=== PATIENT | female | born 1940 | race Caucasian/White ===

== ENCOUNTER 2023-06-11 12:18 | Emergency (ER) | payer MEDICARE, BC, SELFPAY ==
[2023-06-11 12:20] VITALS: BP 131/64
[2023-06-11 12:45] LABS: % Basophils 0.7 % (0-2); % Eosinophils 1.4 % (0-6); % Immature Granulocytes 0.3 % (0-0.5); % Lymphocytes 17.1 % (20.5-51.1); % Monocytes 14.7 % (1.7-9.3); % Neutrophils 65.8 % (42.2-75.2); Absolute Basophils 0.1 10^3/uL (0-0.2); Absolute Eosinophils 0.1 10^3/uL (0-0.7); Absolute Lymphocytes 1.3 10^3/uL (1.2-3.4); Absolute Monocytes 1.1 10^3/uL (0.1-0.6); Absolute Neutrophils 4.9 10^3/uL (1.4-6.5); Hematocrit 37.4 % (37.0-47.0); Hemoglobin 12.9 g/dL (12.0-16.0); Mean Corp Hgb Conc. 34.5 g/dL (33.0-37.0); Mean Corpuscular Hgb 31.3 pg (27.0-31.0); Mean Corpuscular Volume 90.8 fL (81.0-99.0); Mean Platelet Volume 9.3 fL (7.4-10.4); Nucleated Red Blood Cells % 0 %; Platelet Count 341 10^3/uL (130-400); Red Blood Cell Count 4.12 10^6/uL (4.20-5.40); Red Cell Dist. Width 13.2 % (11.5-14.5); White Blood Cell Count 7.4 10^3/uL (4.8-10.8)
[2023-06-11 12:55] LABS: ALT (SGPT) 22 U/L (0-35); AST (SGOT) 30 U/L (14-36); Alkaline Phosphatase 68 U/L (38-126); Blood Urea Nitrogen 12 mg/dl (7-17); Calcium 8.5 mg/dl (8.4-10.2); Carbon Dioxide 27 mmol/L (22-30); Chloride 106 mmol/L (98-107); Glucose 109 mg/dl (70-99); Potassium 3.4 mmol/L (3.5-5.1); Sodium 139 mmol/L (135-145); Total Bilirubin 1.2 mg/dl (0.2-1.3); Total Protein 6.7 g/dl (6.3-8.2); eGFR > 60.00
[2023-06-11 15:50] LABS: Lactic Acid 1.5 mmol/L (0.7-2.0)
[2023-06-11] MEDS: FIRVANQ 125 MG PO (17:11)
--- NOTE | 2023-06-11 17:17 | ED.GENMED ---
History of Present Illness
<Carole Crowley PA-C - Last Filed: 06/11/23 17:25>
General
Chief Complaint: Bowel Problem
Source: patient
Exam Limitations: none
Time Seen by Provider: 06/11/23 15:01
Nursing documentation reviewed up to this point in time: agreed with
Travel History
Have you had any contact with someone who has COVID-19?: No
Do you have any symptoms of coronavirus? Fever > 100 degrees, chills, cough, shortness of breath, sore throat, loss of taste or smell, muscle aches, or headache?: No
History of Present Illness
History of Present Illness:
pt is a 83 y/o F
afib on [employer]
had a mechanical fall on 06/02 outside on wet ground and hit her head and fractured right wrist. had ORIF at [facility], was hospitalized until 06/04.. she had IV abx during that hospitalization. neg head ct
she went to her daughter's house on 06/04-06/06 and has been home at [facility] ([place] since.
for 5 days following her fall, pt was constipated. she was receiving IV dailudid in the hospital
on 06/06 pt's daughter who is a [employer] BLAST[employer] disimpacted her at home. she was able to move bowels afterward, slightly bloody on the tissue but no residual blood.
she says ever since then, she has had stool incontinence, a lot of liquidy stool and has to wear depends. she says she has no rectal numbness but she doesn't even feel she has to have BM and it is in her pant/
pt was getting miralax for a few days but stopped that.
she has not had any rectal pain, bleeding, fever, lightheadedness, fatigue, abdomianl pain
sh denies back pain/back injury, leg weaknes.
Past History
<Carole Crowley PA-C - Last Filed: 06/11/23 17:25>
Past History
ED Past Medical History: Arrthythmia (Atrial fibrillation)
ED Past Surgical History: Appendectomy, Cholecystectomy, and Gynecological
Social History
Tobacco: Non-smoker
Alcohol: Daily
Drug: None
Personal: Single
Living: with family
Employment: Retired
Family History
Family History: Other (n/c)
Review of Systems
<Carole Crowley PA-C - Last Filed: 06/11/23 17:25>
Review of Systems
Allergies reviewed?: Yes
All Other Systems: Not applicable
Phy Exam
<Carole Crowley PA-C - Last Filed: 06/11/23 17:25>
Physical Exam
Physical Exam:
GENERAL: Alert , in no apparent distress
head: right sided ecchymosis and STS
EYE: pupils equal and reactive
NECK: Supple
ENT: o/p clr, mmm.
CARDIAC: Regular rate and rhythm .
LUNGS: Clear breath sounds bilaterally, no acute respiratory distress, no wheezes/rales/rhonchi
ABDOMEN: Soft, without focal tenderness, no r/g, no cvat, normal bowel sounds
rectum: there is some somwhat formed soft stool at her rectum which was brown and heme neg; small hemorrhoid, not bleeding;
no rectal pain
normal tone
NEUROLOGICAL: Alert and oriented, no focal neuro deficits
SKIN: Warm and dry, bruising right face, right arm
MUSCULOSKELETAL: r arm is in a cast; swollen, ecchymosis but moving fingers, senstaion itnact
PSYCH: Normal and appropriate interaction.
Course
<JOHNNY Larios Last Filed: 06/11/23 17:25>
Orders/Labs/Results
Orders:
Orders
06/11/23 12:34
CBC/With Diff [Complete Blood Count/With Diff] Urgent
06/11/23 12:35
CMP [Comprehensive Metabolic Panel] Urgent
06/11/23 15:24
CT Abd/Pel (IV only)-[facility] only Urgent
Comment:
Reason For Exam: constipation last week, disimpacted; now leaking
06/11/23 15:30
Lactic Acid Urgent
STOOL [C difficile Antigen & Toxins] Urgent
JAMES Source: Feces/Stool
Specimen Description:
Date Specimen was Collected: 06/11/23
Time Specimen was Collected: 15:29
Stool Culture Urgent
JAMES Source: Feces/Stool
Specimen Description:
Date Specimen was Collected: 06/11/23
Time Specimen was Collected: 15:29
06/11/23 17:01
Vancomycin HCl [Firvanq] 125 mg PO NOW STA
Abnormal Lab Results
06/11/23 06/11/23
12:34 12:35
RBC 4.12 L 10^6/uL
(4.20-5.40)
MCH 31.3 H pg
(27.0-31.0)
Absolute Monos (auto) 1.1 H 10^3/uL
(0.1-0.6)
Lymphocytes % 17.1 L %
(20.5-51.1)
Monocytes % 14.7 H %
(1.7-9.3)
Potassium 3.4 L mmol/L
(3.5-5.1)
Creatinine 0.5 L mg/dL
(0.6-1.0)
Glucose 109 H mg/dl
(70-99)
06/11/23 12:34
06/11/23 12:35
Vital Signs
Initial and Last Documented VS:
Initial Vital Signs
Temp Pulse Resp BP Pulse Ox
98.2 F 90 16 131/64 98
06/11/23 12:20 06/11/23 12:20 06/11/23 12:20 06/11/23 12:20 06/11/23 12:20
Last Documented Vital Signs
Temp Pulse Resp BP Pulse Ox
98.2 F 77 14 141/72 98
06/11/23 17:27 06/11/23 17:27 06/11/23 17:27 06/11/23 17:27 06/11/23 17:27
<Marilyn Marshall MD - Last Filed: 06/11/23 17:32>
Orders/Labs/Results
Orders:
Orders
06/11/23 12:34
CBC/With Diff [Complete Blood Count/With Diff] Urgent
06/11/23 12:35
CMP [Comprehensive Metabolic Panel] Urgent
06/11/23 15:24
CT Abd/Pel (IV only)-[facility] only Urgent
Comment:
Reason For Exam: constipation last week, disimpacted; now leaking
06/11/23 15:30
Lactic Acid Urgent
STOOL [C difficile Antigen & Toxins] Urgent
JAMES Source: Feces/Stool
Specimen Description:
Date Specimen was Collected: 06/11/23
Time Specimen was Collected: 15:29
Stool Culture Urgent
JAMES Source: Feces/Stool
Specimen Description:
Date Specimen was Collected: 06/11/23
Time Specimen was Collected: 15:29
06/11/23 17:01
Vancomycin HCl [Firvanq] 125 mg PO NOW STA
Abnormal Lab Results
06/11/23 06/11/23
12:34 12:35
RBC 4.12 L 10^6/uL
(4.20-5.40)
MCH 31.3 H pg
(27.0-31.0)
Absolute Monos (auto) 1.1 H 10^3/uL
(0.1-0.6)
Lymphocytes % 17.1 L %
(20.5-51.1)
Monocytes % 14.7 H %
(1.7-9.3)
Potassium 3.4 L mmol/L
(3.5-5.1)
Creatinine 0.5 L mg/dL
(0.6-1.0)
Glucose 109 H mg/dl
(70-99)
06/11/23 12:34
06/11/23 12:35
Vital Signs
Initial and Last Documented VS:
Initial Vital Signs
Temp Pulse Resp BP Pulse Ox
98.2 F 90 16 131/64 98
06/11/23 12:20 06/11/23 12:20 06/11/23 12:20 06/11/23 12:20 06/11/23 12:20
Last Documented Vital Signs
Temp Pulse Resp BP Pulse Ox
98.2 F 77 14 141/72 98
06/11/23 17:27 06/11/23 17:27 06/11/23 17:27 06/11/23 17:27 06/11/23 17:27
<Carole Crowley PA-C - Last Filed: 06/11/23 17:25>
MDM/Problems Addressed
Differential Diagnosis Includes:
c diff, colitis, ischemia
MDM/Problems Addressed:
83 y/o F
recently hopsitlaized and had abx
here with diarrhea/loose stool/stool incontiencne after being constipated last week
had disimpaction at home and has been leakin stool
pt says it is all throughtout the day
no other red flag symptosm for cauda equina, no back pain, nrmal leg strength and sensation, no fever
pt has normal tone here but with soft stool in her vault
no blood
labs reassuring
C DIFF TOX pos
ct shows no signfiicant findings, diverticulosis, stool
seen by ed attending
stable for outpatient trial of po vanc
<Carole Crowley PA-C - Last Filed: 06/11/23 17:25>
*Critical Care Note
Total Time (30-74mins, 75-104mins- exclusive of procedures): Not Applicable
ED Attending Note
<Carole Crowley PA-C - Last Filed: 06/11/23 17:25>
-
Portions of this chart may have been created with voice recognition software.� Occasional wrong word or��sound alike� substitutions may have occurred due to the inherent limitations of voice recognition software.
<Marilyn Marshall MD - Last Filed: 06/11/23 17:32>
ED Attending Note
Patient seen and examined by attending physician: Yes
I performed the substantive portion of visit, reviewed & personally made and approve the management plan that is documented in note by myself or JERE.: Yes
ED Attending Note:
Patient looks well and comfortable. Heart sounds regular lungs are clear. Abdomen is soft. Patient reports she is very comfortable going home with oral antibiotics and would prefer to do so. She appears well-perfused and hydrated.
Discharge Plan
Departure
Patient Disposition: Home (Routine Discharge)
Date of Disposition: 06/11/23
Time of Disposition: 16:50
Patient with high blood pressure during this ER visit?: No
Condition: Fair
Discharge Problem:
C. difficile colitis
Instructions: Clostridioides difficile (DC)
Prescriptions:
New
vancomycin 125 mg capsule
125 mg PO QID Qty: 40 0RF
No Action
amiodarone [Pacerone] 200 MG tablet
200 mg PO DAILY
apixaban [Eliquis] 5 MG tablet
5 mg PO BID
furosemide 40 MG tablet
40 mg PO DAILY Qty: 30 0RF
Referrals:
Ricardo Soares, DO [Active] - Follow up in 5-7 days (infectious disease)
Sacha Miller MD [Family Provider] -
Activity Restrictions/Additional Instructions:
You tested positive for C. difficile, it is a bacterial infection in your gut, risk factors being hospitalized recently. You should take vancomycin 125 mg 4 times a day for 10 days. Try to stay hydrated with fluids. It is very contagious so make
sure that anybody who might be helping you with your stool incontinence washes their hands and takes proper precautions. Return to the ER for severe diarrhea causing dehydration, lightheadedness, bloody stool, severe abdominal pain, fevers or
chills or any concerns. You should follow-up with your family doctor as well as with an infectious disease doctor.
Interventions
Interventions:
SS-Dkoaln-Dgonyoygmf Assessment Last Done: 06/11/23 16:27
[2023-06-11 17:27] VITALS: BP 141/72
== END 2023-06-11 18:10 | disposition home or self-care (01) ==
LOC: EMR 12:18
PROVIDERS: Emergency Medicine; Physician Assistant; EMERGENCY PHYSICIAN Emergency Medicine; FAMILY PHYSICIAN Internal Medicine Geriatric Medicine
DX: A04.72 Enterocolitis due to Clostridium difficile, not specified as recurrent (principal); I48.91 Unspecified atrial fibrillation; Z79.01 Long term (current) use of anticoagulants; Z90.49 Acquired absence of other specified parts of digestive tract
CPT/HCPCS: 99284; 74177; 80053; 83605; 85025; 87045; 87046; 87077; 87324; 87427; 87449; Q9967

== ENCOUNTER → 2023-07-30 11:11 | Outpatient (REF) | payer MEDICARE, BC, SELFPAY ==
[2023-07-30 12:33] LABS: ALT (SGPT) 15 U/L (0-35); AST (SGOT) 27 U/L (14-36); Albumin 4.3 g/dl (3.5-5.0); Alkaline Phosphatase 73 U/L (38-126); Blood Urea Nitrogen 19 mg/dl (7-17); Calcium 9.4 mg/dl (8.4-10.2); Carbon Dioxide 30 mmol/L (22-30); Chloride 101 mmol/L (98-107); Glucose 103 mg/dl (70-99); Potassium 4.7 mmol/L (3.5-5.1); Sodium 137 mmol/L (135-145); Total Bilirubin 0.7 mg/dl (0.2-1.3); Total Protein 6.9 g/dl (6.3-8.2); eGFR > 60.00
[2023-07-30 12:50] LABS: Vitamin D, 25-OH*** 41.9 ng/mL (30-80)
== END ==
LOC: REG 11:11
PROVIDERS: ATTENDING PHYSICIAN Internal Medicine; FAMILY PHYSICIAN Internal Medicine Geriatric Medicine
DX: M81.0 Age-related osteoporosis without current pathological fracture (principal); Z51.81 Encounter for therapeutic drug level monitoring
CPT/HCPCS: 36415; 80053; 82306

== ENCOUNTER 2023-08-03 15:07 | Outpatient (RCR) | payer MEDICARE, BC, SELFPAY | END 2023-08-03 23:59 | disposition home or self-care (01) | LOC: ROT 15:07 | PROVIDERS: ATTENDING PHYSICIAN Physician Assistant; FAMILY PHYSICIAN Internal Medicine Geriatric Medicine | DX: S52.91XD Unspecified fracture of right forearm, subsequent encounter for closed fracture with routine healing (principal); Z73.6 Limitation of activities due to disability | CPT/HCPCS: 97010; 97022; 97110; 97140; 97166 ==

== ENCOUNTER 2023-08-09 11:30 | Outpatient (RCR) | payer MEDICARE, BC, SELFPAY | END 2023-08-17 15:02 | disposition home or self-care (01) | LOC: ROT 11:30 | PROVIDERS: ATTENDING PHYSICIAN Physician Assistant; FAMILY PHYSICIAN Internal Medicine Geriatric Medicine | DX: S52.91XD Unspecified fracture of right forearm, subsequent encounter for closed fracture with routine healing (principal); Z73.6 Limitation of activities due to disability | CPT/HCPCS: 97010; 97022; 97110; 97140 ==

== ENCOUNTER → 2023-09-23 11:33 | Outpatient (REF) | payer MEDICARE, BC, SELFPAY | LOC: HWWDC 11:33 | PROVIDERS: ATTENDING PHYSICIAN Internal Medicine Geriatric Medicine | DX: Z12.31 Encounter for screening mammogram for malignant neoplasm of breast (principal) | CPT/HCPCS: 77063; 77067 ==

== ENCOUNTER → 2023-10-12 11:15 | Outpatient (REF) | payer MEDICARE, BC, SELFPAY ==
[2023-10-12 12:52] LABS: % Basophils 0.8 % (0-2); % Eosinophils 2.3 % (0-6); % Immature Granulocytes 0.2 % (0-0.5); % Lymphocytes 28.1 % (20.5-51.1); % Monocytes 14.5 % (1.7-9.3); % Neutrophils 54.1 % (42.2-75.2); Absolute Basophils 0.1 10^3/uL (0-0.2); Absolute Eosinophils 0.2 10^3/uL (0-0.7); Absolute Lymphocytes 1.8 10^3/uL (1.2-3.4); Absolute Neutrophils 3.5 10^3/uL (1.4-6.5); Hematocrit 40.5 % (37.0-47.0); Hemoglobin 13.4 g/dL (12.0-16.0); Mean Corp Hgb Conc. 33.1 g/dL (33.0-37.0); Mean Corpuscular Hgb 29.1 pg (27.0-31.0); Mean Corpuscular Volume 87.9 fL (81.0-99.0); Mean Platelet Volume 9.8 fL (7.4-10.4); Nucleated Red Blood Cells % 0 %; Platelet Count 295 10^3/uL (130-400); Red Blood Cell Count 4.61 10^6/uL (4.20-5.40); Red Cell Dist. Width 14.5 % (11.5-14.5); White Blood Cell Count 6.5 10^3/uL (4.8-10.8)
[2023-10-12 12:54] LABS: INR 1.24; PT 15.4 Sec (11.4-14.6)
[2023-10-12 12:55] LABS: APTT 28.5 Sec (23.4-35.0)
[2023-10-12 13:26] LABS: ALT (SGPT) 16 U/L (0-35); AST (SGOT) 26 U/L (14-36); Albumin 4.3 g/dl (3.5-5.0); Alkaline Phosphatase 69 U/L (38-126); Blood Urea Nitrogen 16 mg/dl (7-17); Calcium 9.4 mg/dl (8.4-10.2); Carbon Dioxide 28 mmol/L (22-30); Chloride 102 mmol/L (98-107); Glucose 98 mg/dl (70-99); Potassium 4.4 mmol/L (3.5-5.1); Sodium 140 mmol/L (135-145); Total Bilirubin 0.6 mg/dl (0.2-1.3); Total Protein 6.8 g/dl (6.3-8.2); eGFR > 60.00
== END ==
LOC: REG 11:15
PROVIDERS: ATTENDING PHYSICIAN Physician Assistant; FAMILY PHYSICIAN Internal Medicine Geriatric Medicine
DX: G56.03 Carpal tunnel syndrome, bilateral upper limbs (principal); Z01.812 Encounter for preprocedural laboratory examination; Z01.818 Encounter for other preprocedural examination; I50.9 Heart failure, unspecified
CPT/HCPCS: 36415; 71046; 80053; 85025; 85610; 85730

== ENCOUNTER → 2024-04-11 13:21 | Outpatient (REF) | payer MEDICARE, BC, SELFPAY ==
[2024-04-11 15:07] LABS: ALT (SGPT) 82 U/L (0-35); AST (SGOT) 44 U/L (14-36); Alkaline Phosphatase 55 U/L (38-126); Blood Urea Nitrogen 17 mg/dl (7-17); Carbon Dioxide 30 mmol/L (22-30); Chloride 98 mmol/L (98-107); Glucose 113 mg/dl (70-99); Sodium 139 mmol/L (135-145); Total Bilirubin 0.8 mg/dl (0.2-1.3); Total Protein 6.8 g/dl (6.3-8.2); eGFR > 60.00
[2024-04-11 15:22] LABS: Vitamin D, 25-OH*** 37.4 ng/mL (30-80)
== END ==
LOC: REG 13:21
PROVIDERS: ATTENDING PHYSICIAN Internal Medicine; FAMILY PHYSICIAN Internal Medicine Geriatric Medicine
DX: M81.0 Age-related osteoporosis without current pathological fracture (principal); Z51.81 Encounter for therapeutic drug level monitoring
CPT/HCPCS: 36415; 80053; 82306

== ENCOUNTER → 2024-08-08 10:52 | Outpatient (REF) | payer MEDICARE, BC, SELFPAY ==
[2024-08-08 11:36] LABS: % Eosinophils 3.1 % (0-6); % Immature Granulocytes 0.1 % (0-0.5); % Lymphocytes 31.4 % (20.5-51.1); % Monocytes 11.3 % (1.7-9.3); % Neutrophils 53.1 % (42.2-75.2); Absolute Basophils 0.1 10^3/uL (0-0.2); Absolute Eosinophils 0.2 10^3/uL (0-0.7); Absolute Lymphocytes 2.3 10^3/uL (1.2-3.4); Absolute Monocytes 0.8 10^3/uL (0.1-0.6); Absolute Neutrophils 3.8 10^3/uL (1.4-6.5); Hematocrit 44.7 % (37.0-47.0); Mean Corp Hgb Conc. 33.6 g/dL (33.0-37.0); Mean Corpuscular Hgb 30.9 pg (27.0-31.0); Mean Platelet Volume 9.8 fL (7.4-10.4); Nucleated Red Blood Cells % 0 %; Platelet Count 278 10^3/uL (130-400); Red Blood Cell Count 4.86 10^6/uL (4.20-5.40); Red Cell Dist. Width 13.7 % (11.5-14.5); White Blood Cell Count 7.2 10^3/uL (4.8-10.8)
[2024-08-08 11:53] LABS: ALT (SGPT) 17 U/L (0-35); AST (SGOT) 30 U/L (14-36); Albumin 4.6 g/dl (3.5-5.0); Alkaline Phosphatase 59 U/L (38-126); Blood Urea Nitrogen 20 mg/dl (7-17); Calcium 9.1 mg/dl (8.4-10.2); Carbon Dioxide 28 mmol/L (22-30); Chloride 104 mmol/L (98-107); Glucose 112 mg/dl (70-99); HDL Cholesterol 94 mg/dl; LDL Cholesterol, Calculated 96 mg/dl; Potassium 4.1 mmol/L (3.5-5.1); Sodium 143 mmol/L (135-145); Total Bilirubin 0.7 mg/dl (0.2-1.3); Total Cholesterol 208 mg/dl (50-199); Triglyceride 93 mg/dl (10-149); Very Low Density Lipoprotein 18 mg/dl (0-30); eGFR > 60.00
[2024-08-08 11:56] LABS: Vitamin D, 25-OH*** 44.6 ng/mL (30-80)
[2024-08-08 12:22] LABS: Urine Albumin 1+ (Neg - Trace); Urine Bilirubin Negative (Negative); Urine Character Clear (Clear); Urine Color Yellow; Urine Glucose Negative (Negative); Urine Ketone Negative (Negative); Urine Leukocyte Negative (Negative); Urine Nitrite Negative (Negative); Urine Occult Blood Negative (Negative); Urine Specific Gravity 1.015 (<1.030); Urine Urobilinogen Negative (Neg - 1+)
[2024-08-08 12:50] LABS: Urine Mucus Few
[2024-08-08 12:51] LABS: Urine Bacteria Few (Negative)
== END ==
LOC: OLABPV 10:52
PROVIDERS: ATTENDING PHYSICIAN Internal Medicine Geriatric Medicine
DX: I50.32 Chronic diastolic (congestive) heart failure (principal); R26.9 Unspecified abnormalities of gait and mobility; I48.0 Paroxysmal atrial fibrillation; J44.9 Chronic obstructive pulmonary disease, unspecified; M05.79 Rheumatoid arthritis with rheumatoid factor of multiple sites without organ or systems involvement; F91.8 Other conduct disorders; F43.20 Adjustment disorder, unspecified; Z79.01 Long term (current) use of anticoagulants; Z79.899 Other long term (current) drug therapy; I51.7 Cardiomegaly; I87.2 Venous insufficiency (chronic) (peripheral); I83.893 Varicose veins of bilateral lower extremities with other complications; Z13.89 Encounter for screening for other disorder; J43.9 Emphysema, unspecified; M54.16 Radiculopathy, lumbar region
CPT/HCPCS: 36415; 80053; 80061; 81003; 81015; 82306; 85025

== ENCOUNTER → 2024-08-14 09:40 | Outpatient (REF) | payer MEDICARE, BC, SELFPAY ==
[2024-08-14 15:48] LABS: Urine Albumin 1+ (Neg - Trace); Urine Bilirubin Negative (Negative); Urine Character Clear (Clear); Urine Color Yellow; Urine Glucose Negative (Negative); Urine Ketone Negative (Negative); Urine Leukocyte Negative (Negative); Urine Nitrite Negative (Negative); Urine Occult Blood Negative (Negative); Urine Specific Gravity 1.015 (<1.030); Urine Urobilinogen Negative (Neg - 1+)
[2024-08-14 16:02] LABS: Urine Mucus Many; Urine Squamous Cell >30 /LPF (Few)
[2024-08-14 16:03] LABS: Urine Bacteria Moderate (Negative); Urine Red Blood Cell 0-2 /HPF (0-2); Urine White Cell 0-2 /HPF (0-5)
== END ==
LOC: OLABPV 09:40
PROVIDERS: ATTENDING PHYSICIAN Internal Medicine Geriatric Medicine
DX: R31.9 Hematuria, unspecified (principal)
CPT/HCPCS: 81003; 81015

== ENCOUNTER → 2024-10-19 13:23 | Outpatient (REF) | payer MEDICARE, BC, SELFPAY | LOC: HWWDC 13:23 | PROVIDERS: ATTENDING PHYSICIAN Internal Medicine Geriatric Medicine | DX: Z12.31 Encounter for screening mammogram for malignant neoplasm of breast (principal) | CPT/HCPCS: 77063; 77067 ==

== ENCOUNTER → 2024-12-21 14:36 | Outpatient (REF) | payer MEDICARE, BC, SELFPAY | LOC: HWRAD 14:36 | PROVIDERS: ATTENDING PHYSICIAN Physician Assistant; FAMILY PHYSICIAN Internal Medicine Geriatric Medicine | DX: M81.0 Age-related osteoporosis without current pathological fracture (principal) | CPT/HCPCS: 77080 ==